=== PATIENT | female | born 1970 | race Two or more races ===

== ENCOUNTER 2022-03-29 15:28 | Inpatient (IN) | payer OTHER ==
[~2022-03-29] VITALS: Ht 157.5 cm; Wt 72.1 kg
[2022-03-29 15:48] VITALS: BP 134/102
[2022-03-29 16:49] LABS: BASOPHILS # (AUTO) 0.1 K/uL (0.00-0.22); BASOPHILS % (AUTO) 0.9 % (0.0-2.0); EOSINOPHILS # (AUTO) 0.1 K/uL (0-0.4); EOSINOPHILS % (AUTO) 1.7 % (0.0-4.0); HEMATOCRIT 35.7 % (36-48); HEMOGLOBIN 11.8 g/dL (12.0-16.0); LYMPHOCYTES # (AUTO) 2.3 K/uL (2.5-16.5); LYMPHOCYTES % (AUTO) 31.3 % (20.5-51.1); MEAN CORPUSCULAR HEMOGLOBIN 28 pg (27-31); MEAN CORPUSCULAR HGB CONC 33 g/dL (33-37); MONOCYTES # (AUTO) 0.5 K/uL (0.8-1.0); MONOCYTES % (AUTO) 6.5 % (1.7-9.3); NEUTROPHILS # (AUTO) 4.4 K/uL (1.8-7.7); NEUTROPHILS % (AUTO) 59.6 % (42.2-75.2); PLATELET COUNT (AUTO) 194 K/uL (140-450); RED BLOOD CELL COUNT(AUTO) 4.25 MIL/uL (4.20-5.40); RED CELL DISTRIBUTION WIDTH 14.6 % (11.6-13.7); WHITE BLOOD COUNT (AUTO) 7.4 K/uL (4.8-10.8)
[2022-03-29] MEDS ORDERED: NITROGLYCERIN 0.4 MG TAB SL ONE (17:00)
[2022-03-29] MEDS: NITROGLYCERIN 0.4 MG TAB SL ONE ×2 (17:04→17:09)
[2022-03-29 17:05] LABS: ANION GAP 13.2 (8-16); CARBON DIOXIDE 25.9 mmol/L (21-32); CREATININE 0.7 mg/dL (0.6-1.3); POTASSIUM 4.1 mmol/L (3.5-5.1); TOTAL BILIRUBIN 0.8 mg/dL (0.0-1.0)
[2022-03-29 17:08] LABS: LIPASE 94 U/L (73-393)
[2022-03-29] MEDS ORDERED: MORPHINE SULFATE 4 MG/ML SYR IVP ONE (17:15)
[2022-03-29] MEDS ORDERED: DICYCLOMINE HCL LIQUID 20 MG, ALUMINUM HYD/MAG/SIMETHICONE 30 ML, LIDOCAINE VISCOUS 2% ... PO ONE ×3 (17:15)
[2022-03-29] MEDS ORDERED: ALUMINUM HYD/MAG/SIMETHICONE 30 ML UDC ONE (17:28)
[2022-03-29] MEDS ORDERED: DICYCLOMINE HCL LIQUID 10 MG/5 ML UDC ONE (17:28)
[2022-03-29] MEDS ORDERED: NACL 0.9% 500 ML IV ONE (17:45)
[2022-03-29] MEDS ORDERED: METOPROLOL 5 MG/5 ML VIAL IVP ONE ×2 (18:40→19:25)
[2022-03-29 19:03] LABS: PROTHROMBIN TIME 33.8 secs (10.8-13.4)
[2022-03-29] MEDS ORDERED: METOPROLOL SUCCINATE 50 MG TABER PO STA (19:22)
[2022-03-29] MEDS ORDERED: ACETAMINOPHEN EXTRA STRENGTH 500 MG TAB PO ONE (19:50)
[2022-03-29] MEDS ORDERED: LOSA100T1 PO (20:49)
[2022-03-29] MEDS ORDERED: WARF3TAB18 PO (20:49)
[2022-03-29] MEDS ORDERED: GLIP5TER PO (20:49)
[2022-03-29] MEDS ORDERED: METO50TE2 PO (20:49)
[2022-03-29] MEDS ORDERED: ATOR40TA PO (20:49)
[2022-03-29] MEDS ORDERED: ERGO-30 PO (20:49)
[2022-03-29] MEDS ORDERED: DILTIAZEM 125 MG in DEXTROSE 5% 100 ML IV ONE (20:55)
[2022-03-29] MEDS ORDERED: DILTIAZEM 125 MG/25 ML VIAL IV ONE ×2 (21:02→21:05)
[2022-03-29] MEDS ORDERED: FUROSEMIDE 20 MG/2 ML VIAL IVP ONE (21:30)
[2022-03-29 22:00] VITALS: BP 128/94
[2022-03-29] MEDS ORDERED: ZOLPIDEM 5 MG TAB PO PRN (22:50)
[2022-03-29] MEDS ORDERED: POTASSIUM CHLORIDE 10 MEQ TABER PO PRN (22:50)
[2022-03-29] MEDS ORDERED: guaiFENesin DM 200/20 MG-10 ML 10 ML UDC PO PRN (22:50)
[2022-03-29] MEDS ORDERED: ACETAMINOPHEN 325 MG TAB PO PRN (22:50)
[2022-03-29] MEDS ORDERED: ONDANSETRON 4 MG/2 ML VIAL IM/IVP PRN (22:50)
[2022-03-29] MEDS ORDERED: HYDROcodone/APAP 7.5/325 MG 1 TAB PO PRN (22:50)
[2022-03-29] MEDS ORDERED: DOCUSATE SODIUM 100 MG GELCAP PO PRN (22:50)
[2022-03-29] MEDS ORDERED: NACL 0.9% 1,000 ML IV SCH (22:50)
[2022-03-29] MEDS ORDERED: DILTIAZEM 125 MG in DEXTROSE 5% 100 ML IV SCH (22:55)
[2022-03-29] MEDS ORDERED: DEXTROSE 50% 50 ML SYR IVP PRN (22:55)
[2022-03-29 23:00] VITALS: BP 133/78
[2022-03-29 23:25] LABS: CHOL/HDL RATIO 3.6 (1-4.5); FREE T4 (FREE THYROXINE) 0.91 ng/dL (0.76-1.46); MAGNESIUM 1.8 mg/dL (1.8-2.4); PHOSPHORUS 3.5 mg/dL (2.5-4.9)
[2022-03-30] VITALS (19 sets, daily range): BP systolic 111–167; BP diastolic 66–102
[2022-03-30] MEDS ORDERED: MORPHINE SULFATE 2 MG/ML SYR ONE (00:03)
[2022-03-30 00:04] LABS: APPEARANCE,URINE CLEAR (CLEAR); BILIRUBIN,URINE NEGATIVE (NEGATIVE); BLOOD, URINE 1+ (NEGATIVE); COLOR,URINE YELLOW (YELLOW); LEUKOCYTE ESTERASE ,URINE 2+ (NEGATIVE); NITRITE, URINE NEGATIVE (NEGATIVE); UGLUCOSE NEGATIVE (NEGATIVE)
[2022-03-30 00:15] LABS: BARBITURATE, URINE NEGATIVE ng/ml (NEG <=200); BENZODIAZEPINE, URINE NEGATIVE ng/mL (NEG <=200); CANNABINOID, URINE NEGATIVE ng/mL (NEG <=50); COCAINE, URINE NEGATIVE ng/mL (NEG <=300); OPIATE, URINE POSITIVE ng/mL (NEG <=2000); PHENCYCLIDINE SCREEN,URINE NEGATIVE ng/mL (NEG <=25)
[2022-03-30] MEDS: MORPHINE SULFATE 2 MG/ML SYR IVP PRN ×3 (00:15→20:21)
[2022-03-30 01:03] LABS: RBC,URINE 0-5 /HPF (0-5)
[2022-03-30 05:55] LABS: ANION GAP 9.8 (8-16); BASOPHILS # (AUTO) 0.1 K/uL (0.00-0.22); CARBON DIOXIDE 28.3 mmol/L (21-32); CREATININE 0.8 mg/dL (0.6-1.3); EOSINOPHILS # (AUTO) 0.2 K/uL (0-0.4); EOSINOPHILS % (AUTO) 2.5 % (0.0-4.0); HEMATOCRIT 35.8 % (36-48); HEMOGLOBIN 12.1 g/dL (12.0-16.0); LYMPHOCYTES # (AUTO) 2.8 K/uL (2.5-16.5); LYMPHOCYTES % (AUTO) 37.9 % (20.5-51.1); MEAN CORPUSCULAR HEMOGLOBIN 28 pg (27-31); MEAN CORPUSCULAR HGB CONC 34 g/dL (33-37); MEAN CORPUSCULAR VOLUME 84.4 fL (80-94); MONOCYTES # (AUTO) 0.6 K/uL (0.8-1.0); NEUTROPHILS # (AUTO) 3.7 K/uL (1.8-7.7); NEUTROPHILS % (AUTO) 50.6 % (42.2-75.2); PLATELET COUNT (AUTO) 206 K/uL (140-450); POTASSIUM 4.1 mmol/L (3.5-5.1); RED BLOOD CELL COUNT(AUTO) 4.25 MIL/uL (4.20-5.40); RED CELL DISTRIBUTION WIDTH 14.9 % (11.6-13.7); WHITE BLOOD COUNT (AUTO) 7.3 K/uL (4.8-10.8)
[2022-03-30] MEDS: BLOOD GLUCOSE MONITORING 1 DEV DEV FS SCH ×4 (07:52→20:19)
[2022-03-30 08:18] LABS: PROTHROMBIN TIME 75.1 secs (10.8-13.4)
[2022-03-30] MEDS ORDERED: METOPROLOL SUCCINATE 50 MG TABER PO SCH (09:00)
[2022-03-30 09:01] LABS: PROTHROMBIN TIME 30.7 secs (10.8-13.4)
[2022-03-30] MEDS: glipiZIDE ER 5 MG TABER PO SCH (09:42)
[2022-03-30] MEDS: LOSARTAN 50 MG TAB PO SCH (09:42)
[2022-03-30] MEDS: PANTOPRAZOLE 40 MG TABEC PO SCH (09:43)
[2022-03-30] MEDS: INSULIN LISPRO SLIDING SCALE 100 UNITS/ML VIAL SUBQ PRN ×2 (09:49→20:19)
[2022-03-30] MEDS ORDERED: DIGOXIN 0.25 MG/ML AMP IV SCH (11:30)
[2022-03-30] MEDS: METOPROLOL 25 MG TAB PO SCH ×2 (13:25→20:18)
[2022-03-30] MEDS ORDERED: WARFARIN 1 MG TAB PO SCH (17:00)
[2022-03-30] MEDS: WARFARIN 1 MG TAB PO SCH (17:37)
[2022-03-30] MEDS ORDERED: DIGOXIN 0.25 MG TAB PO SCH (18:00)
[2022-03-30] MEDS: ATORVASTATIN 20 MG TAB PO SCH (20:18)
[2022-03-31] VITALS (16 sets, daily range): BP systolic 109–163; BP diastolic 62–118
[2022-03-31] MEDS ORDERED: DIGOXIN 0.25 MG TAB PO SCH
[2022-03-31] MEDS ORDERED: MORPHINE SULFATE 4 MG/ML SYR IVP SCH (02:45)
[2022-03-31 03:12] LABS: BASOPHILS # (AUTO) 0.1 K/uL (0.00-0.22); EOSINOPHILS # (AUTO) 0.2 K/uL (0-0.4); EOSINOPHILS % (AUTO) 2.2 % (0.0-4.0); HEMATOCRIT 39.3 % (36-48); HEMOGLOBIN 12.9 g/dL (12.0-16.0); LYMPHOCYTES # (AUTO) 3.4 K/uL (2.5-16.5); LYMPHOCYTES % (AUTO) 37.9 % (20.5-51.1); MEAN CORPUSCULAR HEMOGLOBIN 28 pg (27-31); MEAN CORPUSCULAR HGB CONC 33 g/dL (33-37); MEAN CORPUSCULAR VOLUME 84.3 fL (80-94); MONOCYTES # (AUTO) 0.5 K/uL (0.8-1.0); MONOCYTES % (AUTO) 6.2 % (1.7-9.3); NEUTROPHILS # (AUTO) 4.7 K/uL (1.8-7.7); NEUTROPHILS % (AUTO) 52.7 % (42.2-75.2); PLATELET COUNT (AUTO) 231 K/uL (140-450); RED BLOOD CELL COUNT(AUTO) 4.66 MIL/uL (4.20-5.40); RED CELL DISTRIBUTION WIDTH 14.6 % (11.6-13.7); WHITE BLOOD COUNT (AUTO) 8.8 K/uL (4.8-10.8)
[2022-03-31 03:19] LABS: ANION GAP 6.5 (8-16); CARBON DIOXIDE 30.2 mmol/L (21-32); CREATININE 0.9 mg/dL (0.6-1.3); POTASSIUM 4.7 mmol/L (3.5-5.1)
[2022-03-31 03:23] LABS: PROTHROMBIN TIME 26.1 secs (10.8-13.4)
[2022-03-31] MEDS: METOPROLOL 25 MG TAB PO SCH ×4 (05:08→21:02)
[2022-03-31 07:09] LABS: T4 (THYROXINE) 7.1 ug/dL (4.5-12.0)
[2022-03-31] MEDS: BLOOD GLUCOSE MONITORING 1 DEV DEV FS SCH ×4 (07:30→21:03)
[2022-03-31] MEDS: INSULIN LISPRO SLIDING SCALE 100 UNITS/ML VIAL SUBQ PRN ×4 (09:00→21:04)
[2022-03-31] MEDS: LOSARTAN 50 MG TAB PO SCH (09:23)
[2022-03-31] MEDS: glipiZIDE ER 5 MG TABER PO SCH (09:24)
[2022-03-31] MEDS: PANTOPRAZOLE 40 MG TABEC PO SCH (09:24)
[2022-03-31] MEDS: MORPHINE SULFATE 2 MG/ML SYR IVP PRN ×2 (11:51→21:00)
[2022-03-31] MEDS: DIGOXIN 0.25 MG TAB PO SCH (12:55)
[2022-03-31] MEDS: WARFARIN 1 MG TAB PO SCH (17:21)
[2022-03-31] MEDS: ATORVASTATIN 20 MG TAB PO SCH (21:02)
[2022-04-01] VITALS: BP 141/81
[2022-04-01 04:00] VITALS: BP 123/74
[2022-04-01] MEDS: METOPROLOL 25 MG TAB PO SCH (04:28)
[2022-04-01] MEDS: BLOOD GLUCOSE MONITORING 1 DEV DEV FS SCH ×4 (06:35→20:26)
[2022-04-01] MEDS: INSULIN LISPRO SLIDING SCALE 100 UNITS/ML VIAL SUBQ PRN ×4 (06:37→20:27)
[2022-04-01 07:05] LABS: ANION GAP 11.4 (8-16); CARBON DIOXIDE 28.4 mmol/L (21-32); CREATININE 0.9 mg/dL (0.6-1.3); POTASSIUM 3.8 mmol/L (3.5-5.1)
[2022-04-01 07:10] LABS: PROTHROMBIN TIME 24.1 secs (10.8-13.4)
[2022-04-01 07:16] LABS: BASOPHILS # (AUTO) 0.1 K/uL (0.00-0.22); BASOPHILS % (AUTO) 0.7 % (0.0-2.0); EOSINOPHILS # (AUTO) 0.3 K/uL (0-0.4); HEMATOCRIT 41.8 % (36-48); HEMOGLOBIN 14.1 g/dL (12.0-16.0); LYMPHOCYTES # (AUTO) 2.6 K/uL (2.5-16.5); LYMPHOCYTES % (AUTO) 30.1 % (20.5-51.1); MEAN CORPUSCULAR HEMOGLOBIN 28 pg (27-31); MEAN CORPUSCULAR HGB CONC 34 g/dL (33-37); MEAN CORPUSCULAR VOLUME 83.2 fL (80-94); MONOCYTES # (AUTO) 0.6 K/uL (0.8-1.0); NEUTROPHILS % (AUTO) 59.2 % (42.2-75.2); PLATELET COUNT (AUTO) 226 K/uL (140-450); RED BLOOD CELL COUNT(AUTO) 5.03 MIL/uL (4.20-5.40); RED CELL DISTRIBUTION WIDTH 14.2 % (11.6-13.7); WHITE BLOOD COUNT (AUTO) 8.5 K/uL (4.8-10.8)
[2022-04-01 08:00] VITALS: BP 137/87
[2022-04-01] MEDS: PANTOPRAZOLE 40 MG TABEC PO SCH (09:46)
[2022-04-01] MEDS: glipiZIDE ER 5 MG TABER PO SCH (09:46)
[2022-04-01] MEDS: DIGOXIN 0.25 MG TAB PO SCH (09:46)
[2022-04-01 12:00] VITALS: BP 133/80
[2022-04-01] MEDS ORDERED: AMIODARONE 200 MG TAB PO SCH (13:00)
[2022-04-01] MEDS: AMIODARONE 200 MG TAB PO SCH ×2 (13:39→20:34)
[2022-04-01] MEDS: METOPROLOL 50 MG TAB PO SCH ×2 (13:40→20:34)
[2022-04-01] MEDS: MORPHINE SULFATE 2 MG/ML SYR IVP PRN (15:57)
[2022-04-01 16:00] VITALS: BP 136/75
[2022-04-01] MEDS: WARFARIN 1 MG TAB PO SCH (17:55)
[2022-04-01 20:00] VITALS: BP 118/67
[2022-04-01] MEDS: ATORVASTATIN 20 MG TAB PO SCH (20:34)
[2022-04-02] VITALS: BP 119/71
[2022-04-02 04:00] VITALS: BP 120/77
[2022-04-02] MEDS: METOPROLOL 50 MG TAB PO SCH ×2 (05:12→12:56)
[2022-04-02] MEDS: BLOOD GLUCOSE MONITORING 1 DEV DEV FS SCH ×3 (06:59→16:30)
[2022-04-02] MEDS: INSULIN LISPRO SLIDING SCALE 100 UNITS/ML VIAL SUBQ PRN ×2 (06:59→12:59)
[2022-04-02 07:03] LABS: BASOPHILS % (AUTO) 0.4 % (0.0-2.0); EOSINOPHILS # (AUTO) 0.3 K/uL (0-0.4); EOSINOPHILS % (AUTO) 3.1 % (0.0-4.0); HEMATOCRIT 43.4 % (36-48); HEMOGLOBIN 14.5 g/dL (12.0-16.0); LYMPHOCYTES # (AUTO) 3.8 K/uL (2.5-16.5); LYMPHOCYTES % (AUTO) 37.1 % (20.5-51.1); MEAN CORPUSCULAR HEMOGLOBIN 28 pg (27-31); MEAN CORPUSCULAR HGB CONC 33 g/dL (33-37); MEAN CORPUSCULAR VOLUME 83.5 fL (80-94); MONOCYTES # (AUTO) 0.7 K/uL (0.8-1.0); NEUTROPHILS # (AUTO) 5.3 K/uL (1.8-7.7); NEUTROPHILS % (AUTO) 52.4 % (42.2-75.2); PLATELET COUNT (AUTO) 245 K/uL (140-450); RED BLOOD CELL COUNT(AUTO) 5.19 MIL/uL (4.20-5.40); RED CELL DISTRIBUTION WIDTH 14.7 % (11.6-13.7); WHITE BLOOD COUNT (AUTO) 10.1 K/uL (4.8-10.8)
[2022-04-02 07:07] LABS: ANION GAP 12.5 (8-16); CREATININE 0.8 mg/dL (0.6-1.3); POTASSIUM 4.5 mmol/L (3.5-5.1)
[2022-04-02 08:15] LABS: PROTHROMBIN TIME 29.1 secs (10.8-13.4)
[2022-04-02] MEDS: AMIODARONE 200 MG TAB PO SCH (09:32)
[2022-04-02] MEDS: PANTOPRAZOLE 40 MG TABEC PO SCH (09:33)
[2022-04-02] MEDS: glipiZIDE ER 5 MG TABER PO SCH (09:33)
[2022-04-02] MEDS: DIGOXIN 0.25 MG TAB PO SCH (09:33)
[2022-04-02] MEDS ORDERED: ATOR20TA40 PO (13:24)
[2022-04-02] MEDS ORDERED: AMIO200T10 PO (13:24)
[2022-04-02] MEDS ORDERED: METO50TA99 PO (13:24)
[2022-04-02] MEDS ORDERED: DIGO-81 PO (13:24)
[2022-04-02 16:00] VITALS: BP 136/75
[2022-04-02] MEDS: WARFARIN 1 MG TAB PO SCH (17:38)
[2022-04-02 18:56] VITALS: BP 136/75
== END 2022-04-02 19:45 | disposition home or self-care (01) | DRG 871 ==
LOC: MED 15:28 → MMU 21:33 → MIC 21:40 → MTU 03-31 19:40
PROVIDERS: ADMIT Family Medicine; ATTEND Family Medicine
DX: A41.9 Sepsis, unspecified organism (principal); I50.43 Acute on chronic combined systolic (congestive) and diastolic (congestive) heart failure; N39.0 Urinary tract infection, site not specified; E11.9 Type 2 diabetes mellitus without complications; I48.91 Unspecified atrial fibrillation; Z20.822 Contact with and (suspected) exposure to COVID-19; I34.0 Nonrheumatic mitral (valve) insufficiency; I25.10 Atherosclerotic heart disease of native coronary artery without angina pectoris; I11.0 Hypertensive heart disease with heart failure; Z95.2 Presence of prosthetic heart valve; Z79.01 Long term (current) use of anticoagulants; Z79.899 Other long term (current) drug therapy
CPT/HCPCS: 36415; 71045; 80048; 80053; 80305; 81001; 82150; 82948; 83036; 83690; 83735; 83880; 84100; 84436; 84439; 84443; 84479; 84484; 85025; 85379; 85610; 87081; 87086; 93005; 96361; 96374; 96375; 96376; 99291; J1160; J1940; J2270; J3490; J7030; J7060; Q0092